=== PATIENT | female | born 1990 ===

== ENCOUNTER 2018-04-24 17:10 | Inpatient (IN) | payer OTHER ==
[~2018-04-24] VITALS: Ht 170.2 cm; Wt 115.0 kg
--- NOTE | 2018-04-25 07:35 | PR ---
[facility] [address] [facility] [place] [place] [address] Signed Progress Notes IP Datetime Report Generated by MILKA: 04/25/2018 07:35 PROGRESS NOTES: [id number] Impression: Slow Progression of Labor Procedures: Artificial ROM; Sterile Vag Exam Plan: Continue present management Informed Consent Obtain: Vaginal Delivery; Induction of Labor; Risks, Benefits and Alternatives Discussed VITAL SIGNS: [id number] Vital Signs: Reviewed VS Notable Details: mild HTN EXAM: [id number] Dilatation: 1.5 Effacement: 75 Station: -2 Uterine Contractions: q 1 to 7 min, mild MEMBRANES: [id number] Membrane Status: Intact ROM Note: AROM with moderate clear fluid Comments: Slow progress. Will continue. Fetus A: [id number] FHR Baseline: 140 Variability: Moderate 6-25bpm Accelerations: 15X15 Decelerations: None FHR Category: Category I Presentation: Vertex Comments on Fetus A: No evidence of metabolic acidosis Fetus B: [id number] Signing Physician: Brandi Qureshi MD Copies: ~ *Electronically Signed* 04/25/18 0735 BRANDI QURESHI MD PATIENT NAME: JENNIFER WILLIS PROGRESS NOTE DATE OF : 88 PHYSICIAN: BRANDI QURESHI MD RPT #: [id number] REPORT IS CONFIDENTIAL AND NOT TO BE RELEASED WITHOUT AUTHORIZATION
--- NOTE | 2018-04-25 11:07 | PR ---
[facility] [address] [place], [place] [address] Signed Progress Notes IP Datetime Report Generated by MILKA: 04/25/2018 11:07 PROGRESS NOTES: [id number] Impression: Slow Progression of Labor Procedures: Intrauterine Pressure Catheter; Scalp Electrode; Sterile Vag Exam Plan: Continue present management Informed Consent Obtain: Vaginal Delivery; Induction of Labor; Risks, Benefits and Alternatives Discussed VITAL SIGNS: [id number] Vital Signs: Reviewed VS Notable Details: mild HTN EXAM: [id number] Dilatation: 3.0 Effacement: 75 Station: -2 Uterine Contractions: q 1 to 3 min MEMBRANES: [id number] Membrane Status: Intact ROM Note: AROM with moderate clear fluid Comments: Baby overall reassuring and accel with exam shows there is reserve. Will place IUPC and FSE and continue close observation. Fetus A: [id number] FHR Baseline: 140 Variability: Moderate 6-25bpm Accelerations: 15X15 Decelerations: Prolonged FHR Category: Category II Presentation: Vertex Comments on Fetus A: accel with exam but had decel xs 3 min to 50s now recovered Fetus B: [id number] Signing Physician: Brandi Qureshi MD Copies: ~ *Electronically Signed* 04/25/18 1107 BRANDI QURESHI MD PATIENT NAME: JENNIFER WILLIS PROGRESS NOTE DATE OF : 88 PHYSICIAN: BRANDI QURESHI MD RPT #: [id number] REPORT IS CONFIDENTIAL AND NOT TO BE RELEASED WITHOUT AUTHORIZATION
--- NOTE | 2018-04-25 12:38 | PR ---
[facility] [address] [place], [place] [address] Signed Progress Notes IP Datetime Report Generated by CPAditya: 04/25/2018 12:38 PROGRESS NOTES: [id number] Impression: Slow Progression of Labor Procedures: Sterile Vag Exam Plan: Augmentation; Anesthesia consult Informed Consent Obtain: Vaginal Delivery; Induction of Labor; Risks, Benefits and Alternatives Discussed VITAL SIGNS: [id number] Vital Signs: Reviewed VS Notable Details: HTN EXAM: [id number] Dilatation: 3.0 Effacement: 85 Station: -2 Uterine Contractions: q 1 to 4 min MEMBRANES: [id number] Membrane Status: Intact ROM Note: AROM with moderate clear fluid Comments: Minimal progress and uncomfortable now. Will redose epidural and begin low dose pitocin as contractions appear inadequate. Fetus A: [id number] FHR Baseline: 135 Variability: Moderate 6-25bpm Accelerations: 15X15 Decelerations: None FHR Category: Category I Presentation: Vertex Comments on Fetus A: No evidence of metabolic acidosis Fetus B: [id number] Signing Physician: Brandi Qureshi MD Copies: ~ *Electronically Signed* 04/25/18 1238 BRANDI QURESHI MD PATIENT NAME: JENNIFER WILLIS PROGRESS NOTE DATE OF : 88 PHYSICIAN: BRANDI QURESHI MD RPT #: [id number] REPORT IS CONFIDENTIAL AND NOT TO BE RELEASED WITHOUT AUTHORIZATION
--- NOTE | 2018-04-25 17:02 | PR ---
[facility] [address] [facility] [place] [place] [address] Signed Progress Notes IP Datetime Report Generated by CPN: 04/25/2018 17:02 PROGRESS NOTES: [id number] Impression: Normal progression of labor Procedures: Sterile Vag Exam Plan: Continue present management Informed Consent Obtain: Vaginal Delivery; Induction of Labor; Risks, Benefits and Alternatives Discussed VITAL SIGNS: [id number] Vital Signs: Reviewed VS Notable Details: mild HTN EXAM: [id number] Dilatation: 7.5 Effacement: 95 Station: -1 Uterine Contractions: q 3 to 4 min MEMBRANES: [id number] Membrane Status: Intact ROM Note: AROM with moderate clear fluid Comments: Progressing. Will continue to change positions to allow for progress and improvement in FHTs though overall is reassuring. Fetus A: [id number] FHR Baseline: 130 Variability: Moderate 6-25bpm Accelerations: 15X15 Decelerations: Variable FHR Category: Category II Presentation: Vertex Comments on Fetus A: overall reassuring but will require close observation Fetus B: [id number] Signing Physician: Brandi Qureshi MD Copies: ~ *Electronically Signed* 04/25/18 170 BRANDI QURESHI MD PATIENT NAME: JENNIFER WILLIS PROGRESS NOTE DATE OF : 88 PHYSICIAN: BRANDI QURESHI MD RPT #: [id number] REPORT IS CONFIDENTIAL AND NOT TO BE RELEASED WITHOUT AUTHORIZATION
--- NOTE | 2018-04-26 08:29 | PR ---
[facility] [address] [facility] [place], [place] [address] Signed PP Progress Notes Datetime Report Generated by MILKA: 04/26/2018 08:29 SUBJECTIVE: [id number] Pain: Within normal limits Vital Signs: [id number] Vital Signs: Reviewed Notable Details: mild HTN EXAM: [id number] Cardiovascular: Not Done Respiratory: Not Done Abdomen/Uterus: Abnormal Lochia: Normal Vulva/Perineum: Not Done Breasts: Not Done CVA Tenderness: Not Done Extremities: Normal Incision: Not Applicable Progress: Abnormal Exam Comments: Fundus firm, NT @ U-1 H/H 11.4/34.6, WBC 15.5, plat 222k IMPRESSION/PLAN/PROCEDURES: [id number] Impression: Normal progression Plan: Continue present management; consult Progress Notes: Doing well other than breast feeding. Will continue present management. Signing Physician: Brandi Qureshi MD Copies: ~ *Electronically Signed* 04/26/18828 BRANDI QURESHI MD PATIENT NAME: JENNIFER WILLISN PROGRESS NOTE DATE OF : 88 PHYSICIAN: BRANDI QURESHI MD RPT #: [id number] REPORT IS CONFIDENTIAL AND NOT TO BE RELEASED WITHOUT AUTHORIZATION
--- NOTE | 2018-04-27 08:30 | PR ---
[facility] [address] [place], [place] [address] Signed PP Progress Notes Datetime Report Generated by CPAditya: 04/27/2018 08:29 SUBJECTIVE: [id number] Pain: Within normal limits Nausea/Vomiting: Denies Flatus: Yes Bowel Movement: Yes Vital Signs: [id number] Vital Signs: Reviewed Notable Details: BPs improved EXAM: [id number] Cardiovascular: Normal Respiratory: Normal Abdomen/Uterus: Normal Lochia: Normal Vulva/Perineum: Not Done Breasts: Not Done CVA Tenderness: Normal Extremities: Normal Incision: Not Applicable Progress: Normal Exam Comments: Fundus firm U-2 nontender IMPRESSION/PLAN/PROCEDURES: [id number] Impression: Normal progression Plan: Discharge Progress Notes: Pt seen and examined. Doing well. Ambulating, voiding, and tolerating full diet. Pain and lochia minimal. Baby feeding well. No lightheadedness/dizziness/fevers. Vuvla improving s/p vacuum and pt declines vulvar exam. Denies MARES, RUQ pain or visual changes. Received tobacco cessation education and declines rx for cessation products. Discharge home today. Reviewed d/c instructions. Signing Physician: Mickie Panda DO Copies: ~ *Electronically Signed* 04/27/18 0829 MICKIE PANDA DO PATIENT NAME: JENNIFER WILLIS PROGRESS NOTE DATE OF : 88 PHYSICIAN: MICKIE PANDA DO RPT #: [id number] REPORT IS CONFIDENTIAL AND NOT TO BE RELEASED WITHOUT AUTHORIZATION
== END 2018-04-27 11:05 | disposition home or self-care (01) | DRG 807 ==
LOC: FBCO 17:10 → FBC 18:25
PROVIDERS: ADMIT Obstetrics & Gynecology
PROC: 3E0P7VZ Introduction of Hormone into Female Reproductive, Via Natural or Artificial Opening (ICD-10-PCS; 2018-04-24)
PROC: 10907ZC Drainage of Amniotic Fluid, Therapeutic from Products of Conception, Via Natural or Artificial Opening (ICD-10-PCS; principal; 2018-04-25)
PROC: 0KQM0ZZ Repair Perineum Muscle, Open Approach (ICD-10-PCS; principal; 2018-04-25)
PROC: 10H07YZ Insertion of Other Device into Products of Conception, Via Natural or Artificial Opening (ICD-10-PCS; principal; 2018-04-25)
PROC: 10D07Z6 Extraction of Products of Conception, Vacuum, Via Natural or Artificial Opening (ICD-10-PCS; principal; 2018-04-25)
PROC: 00HU33Z Insertion of Infusion Device into Spinal Canal, Percutaneous Approach (ICD-10-PCS; 2018-04-25)
PROC: 3E0R3BZ Introduction of Anesthetic Agent into Spinal Canal, Percutaneous Approach (ICD-10-PCS; 2018-04-25)
DX: O14.94 Unspecified pre-eclampsia, complicating childbirth (principal); Z37.0 Single live birth; O76 Abnormality in fetal heart rate and rhythm complicating labor and delivery; Z3A.37 37 weeks gestation of pregnancy; Z88.0 Allergy status to penicillin; O99.824 Streptococcus B carrier state complicating childbirth; O26.03 Excessive weight gain in pregnancy, third trimester; O70.1 Second degree perineal laceration during delivery; O99.214 Obesity complicating childbirth; E66.9 Obesity, unspecified; O69.81X0 Labor and delivery complicated by cord around neck, without compression, not applicable or unspecified; O66.0 Obstructed labor due to shoulder dystocia; O99.334 Smoking (tobacco) complicating childbirth; F17.210 Nicotine dependence, cigarettes, uncomplicated; O99.62 Diseases of the digestive system complicating childbirth; K21.9 Gastro-esophageal reflux disease without esophagitis
CPT/HCPCS: 01960; 36415; 82565; 82803; 84450; 84520; 84550; 85025; 85027; 99213; J0690; J2590; J2795; J7120